=== PATIENT | female | born 1965 | race Caucasian/White ===

== ENCOUNTER → 2021-04-16 | Outpatient (CLI) | payer MEDICARE, OTHER ==
[2021-04-16] VITALS (10 sets, daily range): BP systolic 83–125; BP diastolic 52–86; PULSE 78–94; TEMP 98
[~2021-04-16] VITALS: Ht 157.5 cm; Wt 75.5 kg
[~2021-04-16] MED LIST: ABILIFY 10MG TA10 MG PO; ASPIRIN 81M81 MG/TA2 PO; BUSPAR10 MG PO; CYMBALTA 60MG60 MG PO; FLONASEALLERGY NS; GRALISE300 MG PO; INDERAL60 MG PO; LASIX 20MG TABL20 MG PO; LEVOXYL0.05 MG PO; LIORESAL 1010 MG/TAB PO; LIPITOR20 MG PO; MYRBETR50MG PO; PERCOCET 325 MG1 TAB PO; PERIACTIN 4MG TA4 MG PO; PRILOSEC 20MG20 MG PO; PROAIR HFA0.09 MG/AC IH; REQUIP 1MG T1 MG/TAB PO; RESTORIL 1515 MG/CAP PO; RT SPIRIVA18 MCG IH; SINGULAIR 110 MG/TAB PO; TOPAMAX 25MG25 M1 PO; TOPAMAX50 MG PO; VESICARE10 MG PO; VICTOZA6 MG/ML SQ
--- NOTE | 2021-04-16 09:53 | NUR ---
Lab drawn for a red top for testing.
[2021-04-16 11:01] LABS: CSF APPEARANCE CLEAR; CSF COLOR COLORLESS; CSF RBC 5 /mm3 (0-0)
[2021-04-16 11:05] LABS: GLUCOSE,CSF 56 mg/dL (40-70); TOTAL PROTEIN,CSF 50 mg/dL (15-45)
[2021-04-16 11:14] LABS: CSF MONONUCLEAR 100 % (70-100); CSF POLYMORPHONUCLEAR 0 % (0-6)
== END ==
LOC: COL.RAD 03-29 09:45
PROVIDERS: Psychiatry & Neurology Neurology
DX: G37.9 Demyelinating disease of central nervous system, unspecified (principal)